=== PATIENT | male | born 1975 | race Caucasian/White ===

== ENCOUNTER 2018-07-01 14:17 | Emergency (ER) | payer MEDICAID, SELFPAY ==
--- NOTE | 2018-07-01 14:28 | NUR.NOTE ---
Nursing Note: Per Magaly Medina, the patient presented with foreign body eye. @ [id number] he told her that his eye felt better, he felt that it fell out. He left without being seen. Diana Corbett.
== END 2018-07-01 14:29 | disposition left before discharge ==
LOC: ER 14:36
PROVIDERS: PCP Family Medicine
DX: Z53.21 Procedure and treatment not carried out due to patient leaving prior to being seen by health care provider (principal)

== ENCOUNTER 2019-01-14 10:34 | Emergency (ER) | payer MEDICAID, SELFPAY ==
[2019-01-14 10:41] VITALS: BP 119/63; PULSE 67; RESP 16; TEMP 36.7; O2SAT 99
--- NOTE | 2019-01-14 10:49 | W.ED.GENAD ---
Discharge Plan Disposition Patient Disposition: HOME Condition: Stable Discharge Details Chief Complaint: Laceration Clinical Impression: Laceration of thumb Primary Care Provider: Jeffrey Tapia ED Provider: Evangelista Brown Mosby Meds and New Rx's Prescriptions: New amoxicillin-pot clavulanate [Augmentin] 875-125 mg tablet 1 tab PO Q12H Qty: 14 RF: 0 Continued ibuprofen 200 MG capsule 600 mg PO Q8H PRN PRNQty: 0 RF: 0 Discharge Instructions Instructions: Laceration (ED) Additional Instructions: if still symptomatic in a week see your primary care provider if you have high fevers, redness spreading down the thumb or severe worsening pain return to the emergency department Medical Decision Making 43 yo male states he was using a knife 3 days ago and accidentally cut the radial side of this thumb, came in today for continued discomfort. HE has no fevers, subjective numbness in distal thumb though sensation on exam is intact. HAs superficial 1cm laceration between tip of thumb and IP joint of thumb with mild erythema, no swelling or crepitus. Given the continued pain and erythema will start abx to tx cellulitis. Advised f/u if still symptomatic in a week and return precautions given. Normal rom of joints so doubt tendon injury. No crepitus and pain is mild not severe so doubt nec fasc Differential Diagnosis Differential Diagnosis: cellulitis, laceration HPI General Mode of arrival: ambulatory. Date/Time Provider Initiated Documentation: 01/14/19 10:45. Limitations to Documentation: no limitations. Information obtained by: patient. History of Present Illness 43 year old M presents to the emergency department with the chief complaint of left thumb pain, described as moderate, and it has been constant. No relieving factors improve symptom(s), No exacerbating factors reported . Patient notes no other symptoms.. Related Data Home Medications Medication Instructions Recorded Confirmed ibuprofen 600 mg PO Q8H PRN PRN #0 tab-cap 06/21/16 01/14/19 amoxicillin-pot clavulanate 1 tab PO Q12H #14 tab 01/14/19 [Augmentin] Previous Rx's Medication Instructions Recorded ibuprofen 600 mg PO Q8H PRN PRN #0 tab-cap 06/21/16 amoxicillin-pot clavulanate 1 tab PO Q12H #14 tab 01/14/19 [Augmentin] Allergies Allergy/AdvReac Type Severity Reaction Status Date / Time No Known Allergies Allergy Unverified 01/14/19 10:43 General Stated Complaint: Laceration JENNIFER: 4 Review of Systems All systems reviewed & are unremarkable except as noted in HPI and below Constitutional Constitutional: Denies chills, Denies fever(s) and Denies weakness Cardiovascular Cardiovascular: Denies chest pain and Denies dyspnea Respiratory Respiratory: Denies dyspnea Gastrointestinal Gastrointestinal: Denies abdominal pain, Denies nausea and Denies vomiting Musculoskeletal Musculoskeletal: Denies joint swelling Neurologic Neurologic: Denies weakness [facility] Social History Smoking/Tobacco Use Status: Never Alcohol Intake: never Drug use: Never Do you feel safe in your relationship?: Yes Exam Const General: no acute distress Orientation: alert HENMT Head: normal to inspection Ears: external ears normal General nose exam: external nose normal Mouth: moist mucous membranes Eyes General: appearance normal, both eyes and all related structures Neck Neck: normal visual inspection Resp Effort & Inspection: normal respiratory effort and able to speak in complete sentences Cardio Rate: regular rate Skin General skin exam: elasticity normal Neuro General: alert and oriented x3 Extrem General: full ROM and normal capillary refill Psych Mental Status: mental status grossly normal Course Vital Signs Vital signs: Vital Signs Temperature 36.7 C 01/14/19 10:41 Pulse 67 01/14/19 10:41 Respiratory Rate 16 01/14/19 10:41 Blood Pressure 119/63 01/14/19 10:41 Pulse Oximetry 99 01/14/19 10:41 Temperature 36.7 C 01/14/19 10:41 Temperature Source Skin 01/14/19 10:41 Pulse 67 01/14/19 10:41 Respiratory Rate 16 01/14/19 10:41 Respiratory Effort Non-Labored 01/14/19 10:41 Blood Pressure 119/63 01/14/19 10:41 Blood Pressure Position Sitting 01/14/19 10:41 Pulse Oximetry 99 01/14/19 10:41 Oxygen Delivery Method Room Air 01/14/19 10:41 Oxygen Flow Rate 0 01/14/19 10:41 Pain Level 5 01/14/19 10:41
== END 2019-01-14 10:54 | disposition home or self-care (01) ==
PROVIDERS: Emergency Provider Emergency Medicine; PCP Family Medicine
DX: S61.122A Laceration with foreign body of left thumb with damage to nail, initial encounter (principal); W26.0XXA Contact with knife, initial encounter
CPT/HCPCS: 99283

== ENCOUNTER 2020-04-19 01:44 | Outpatient (CLI) | payer MEDICAID, SELFPAY ==
--- NOTE | 2020-04-19 11:15 | DI.RAD_ITS ---
EXAM: XR SHOULDER LT COMPLETE 2+V CLINICAL HISTORY: left shoulder pain (chronic),m25.512. TECHNIQUE: 2D digital imaging was performed. COMPARISON: No exams were available for comparison FINDINGS: BONES: No acute fracture is present. No bony destructive lesion is seen. JOINTS: No dislocation present. SOFT TISSUE: Normal. IMPRESSION: Unremarkable radiographs of the left shoulder. DATA REPOSITORY: RADIATION DOSE DELIVERED:
== END 2020-04-19 02:04 ==
PROVIDERS: PCP Family Medicine; Visit Provider Family Medicine
DX: M25.512 Pain in left shoulder (principal); G89.29 Other chronic pain
CPT/HCPCS: 73030

== ENCOUNTER → 2021-10-07 08:54 | Outpatient (CLI) | payer MEDICAID, SELFPAY ==
--- NOTE | 2021-10-07 09:30 | DI.RAD_ITS ---
Exam(s) XR LUMBAR SPINE COMPLETE EXAM: XR LUMBAR SPINE COMPLETE CLINICAL HISTORY: ongoing back pain, despite interventions M54.9 DORSALGIA. TECHNIQUE: 2D digital imaging was performed. Five views. COMPARISON: No exams were available for comparison FINDINGS: BONES: No fracture or destructive lesion. Vertebral bodies are unremarkable. Minimal endplate osteop hytes L4 and L5. Minimal facet hypertrophy identified L4-5 and L5-S1. DISKS: Intervertebral disc spaces are maintained. ALIGNMENT: Lumbar spinal alignment is within normal limits. SOFT TISSUE: Normal. IMPRESSION: Mild degenerative changes. DATA REPOSITORY: RADIATION DOSE DELIVERED:
== END ==
PROVIDERS: PCP Family Medicine; Visit Provider Family Medicine
DX: M47.816 Spondylosis without myelopathy or radiculopathy, lumbar region (principal)
CPT/HCPCS: 72110

== ENCOUNTER → 2021-10-19 01:42 | Outpatient (CLI) | payer MEDICAID, SELFPAY ==
--- NOTE | 2021-10-19 07:15 | DI.MRI_ITS ---
Exam(s) MR LUMBAR SPINE WO EXAM: MR LUMBAR SPINE WO CLINICAL HISTORY: persistent low back pain with left leg radiculopathy, M54.9. TECHNIQUE: Multiplanar multisequence MRI of the Lumbar spine was performed. COMPARISON: CR XR LUMBAR SPINE COMPLETE from 10/07/2021 FINDINGS: Conus medullaris is at normal level. There is no evidence of conus mass nor subjacent clumping of in trathecal nerve roots to suggest arachnoiditis. The distal thecal sac appears unremarkable.There is no evidence of Tarlov intrasacral cysts nor other significant findings within the sacral canal Bones:There are no fractures nor ominous osseous lesions in the lumbar vertebral bodies and visualize d sacrum. With respect to the individual levels... T12-L1: Unremarkable L1-2: Normal disc height and signal. No disc herniation nor central canal stenosis.No foraminal steno sis L2-3: Normal disc height. There is mild symmetrical annular bulging without evidence of a significant disc herniation. No central spinal canal stenosis.No foraminal stenosis.No facet arthropathy. L3-4: Normal disc height. Symmetrical mild annular bulging. No dominant disc herniation. There is mild central spinal canal stenosis due to short AP dimensions the pedicles and the annular bulging. No facet arthropathy evident.No foraminal stenosis. L4-5: Normal disc height and signal. Mild symmetrical annular bulging. No disc herniation. Central canal dimensions are lower normal. Annular bulging extends into the floor of the exiting neural for juan but there is no significant foraminal stenosis. Also no facet arthropathy. L5-S1: There is mild disc space narrowing at this level. There is posterior annular bulging. There is a T2 bright spot in the posterior annulus, left of center consistent with small annular tear at th is level.. There is central subligamentous annular bulging which contacts the anterior thecal sac bu t there is no prominent disc herniation at this level. Central canal dimensions are lower normal. T here is, however, an element of foraminal stenosis on the left side at this level. This is related t o more prominent disc height loss on the left side. There is no true foraminal stenosis on the oppos ite-right side. No facet arthropathy evident. Soft tissues: paraspinal soft tissues appear unremarkable. IMPRESSION: 1. Mild multilevel findings as described above. 2. There is mild-moderate foraminal stenosis on the left side at L5-S1 level as described above. Exi ting right neural foramen at this level appears unremarkable. There is also no central canal stenosi s at this level. 3. Small annular tear left of center posteriorly at L5-S1 level. However, there is no distinct disc herniation at this level. Instead, there is mild annular bulging at L5-S1 level noted, but without c entral canal stenosis. DATA REPOSITORY:
== END ==
PROVIDERS: PCP Family Medicine; Visit Provider Family Medicine
DX: M54.59 Other low back pain; M79.605 Pain in left leg; M51.17 Intervertebral disc disorders with radiculopathy, lumbosacral region; M51.87 Other intervertebral disc disorders, lumbosacral region
CPT/HCPCS: 72148

== ENCOUNTER 2021-11-10 11:44 | Outpatient (CLI) | payer MEDICAID, SELFPAY ==
--- NOTE | 2021-11-10 06:00 | DI.RAD_ITS ---
Exam(s) XR PAIN CLINIC LUMBAR SP 2V EXAM: XR PAIN CLINIC LUMBAR SP 2V CLINICAL HISTORY: DX: lumbar radiculopathy. TECHNIQUE: Fluoroscopy was provided for the referring physician for guidance with performing pain cl inic injection procedure. COMPARISON: No exams were available for comparison FINDINGS: Please see procedure note for details. Fluoro time: 23.2 seconds RADIATION DOSE DELIVERED: Ka,r=8.32 mGy
[2021-11-10 11:53] VITALS: BP 108/63; PULSE 60; RESP 20; TEMP 36.9; O2SAT 99
[2021-11-10] MEDS: Omnipaque 240 MG/ML 50 ML BTL IJ (12:28)
--- NOTE | 2021-11-10 12:30 | PDOC.PAIN_ITS ---
Pain Clinic Procedure Note Procedure Note Procedure Note: Lumbar Epidural Steroid Injection Procedure Note COMMENTS:I previously evaluated him last week in the office. Pre-procedure pain VAS = 10/10. Dx: Lumbosacral radiculopathy Felipe Vo has been referred to the [facility] Management [facility] for lumbar epidural steroid injection. The patient was greeted by the nurse who verified patients name and . Patient was then taken to the fluoroscopy suite. The patient was interviewed and the medial record reviewed. There were no medical, pharmacologic, radiographic, or other structural contraindications to attempting fluoroscopically guided lumbar epidural steroid injection. Risks and expected side effects as well as potential benefits of the procedure were reviewed and voiced concerns expressed. The patient consent form was signed and witnessed. Standard patient time-out procedure was performed. The patient was placed in the prone position on the fluoroscopy table and automated blood pressure cuff and pulse oximeter applied. The skin entry point for entering/approaching the epidural space at theL5-S1 and marked. Following thorough chlorhexadine preparation of the skin and draping and 1% lidocaine infiltration of the skin entry point and subcutaneous tissues, a 18 gauge Touhy needle was placed under fluoroscopic guidance and with loss of resistance technique into the epidural space. Needle tip placement and depth were aided and confirmed by fluoroscopy. There was no paresthesia or return of blood or CSF through the needle. 1 cc's of Omnipaque 240 was injected with clear epidural spread confirmed with fluoroscopy. 5 cc of Normal Saline was injected, followed by 4 cc of 1% Lidocaine, then 80mg depomedrol was injected. The needle was then flushed with 1 cc of 1% Lidocaine and the needle was removed. There was not any unusual discomfort expressed by Felipe Vo. Patient's vital signs were stable throughout the procedure and were as recorded in nursing records. Follow up plans and appointments were discussed with patient. Post procedure instruction was given as documented in nursing records and having met discharge criteria and was discharged from the [facility] Management Center. COMMENTS: If this procedure is helpful, it can be completed up to 3 times per 12 months. Post-procedure pain VAS = 0/10. Yan Son DO, MPH [facility]
[2021-11-10] MEDS: methylPREDNISolone ACETATE 80 MG/ML VIAL IJ (12:31)
[2021-11-10 12:32] VITALS: BP 126/77; PULSE 64; RESP 19; O2SAT 99
== END 2021-11-10 11:45 | disposition home or self-care (01) ==
LOC: PC 11:44
PROVIDERS: PCP Family Medicine; Visit Provider Preventive Medicine Occupational Medicine
DX: M54.17 Radiculopathy, lumbosacral region (principal)
CPT/HCPCS: 62323; 72100; J1040; Q9967

== ENCOUNTER 2022-02-07 13:41 | Outpatient (CLI) | payer MEDICAID, SELFPAY ==
--- NOTE | 2022-02-07 06:00 | DI.RAD_ITS ---
Exam(s) XR PAIN CLINIC LUMBAR SP 2V EXAM: XR PAIN CLINIC LUMBAR SP 2V CLINICAL HISTORY: Dx: Lumbar Radiculopathy TECHNIQUE: 2D and realtime digital imaging was performed. Radiologist not present. CONTRAST MATERIAL: None. COMPARISON: No exams were available for comparison FINDINGS: Fluoroscopy was provided for pain management therapy. Please refer to procedure report or details. Cumulative dose: Ka,r=3.11 mGy IMPRESSION: RADIATION DOSE DELIVERED:
[2022-02-07 13:50] VITALS: BP 127/67; PULSE 61; RESP 20; TEMP 36.2; O2SAT 99
--- NOTE | 2022-02-07 14:12 | PDOC.PAIN ---
Date of service: 02/07/22 Time of Service: 14:13 Pain Clinic Procedure Note Procedure Note Procedure Note: Lumbar Epidural Steroid Injection Procedure Note COMMENTS: Patient reports at least 80% pain relief lasting for 2.5 months since his last LESI. He returns for repeat injection. Pre-procedure pain VAS = 5/10. Dx: Lumbosacral radiculopathy Felipe Vo has been referred to the [facility] Management Center for lumbar epidural steroid injection. The patient was greeted by the nurse who verified patients name and . Patient was then taken to the fluoroscopy suite. The patient was interviewed and the medial record reviewed. There were no medical, pharmacologic, radiographic, or other structural contraindications to attempting fluoroscopically guided lumbar epidural steroid injection. Risks and expected side effects as well as potential benefits of the procedure were reviewed and voiced concerns expressed. The patient consent form was signed and witnessed. Standard patient time-out procedure was performed. The patient was placed in the prone position on the fluoroscopy table and automated blood pressure cuff and pulse oximeter applied. The skin entry point for entering/approaching the epidural space at theL5-S1 and marked. Following thorough chlorhexadine preparation of the skin and draping and 1% lidocaine infiltration of the skin entry point and subcutaneous tissues, a 18 gauge Touhy needle was placed under fluoroscopic guidance and with loss of resistance technique into the epidural space. Needle tip placement and depth were aided and confirmed by fluoroscopy. There was no paresthesia or return of blood or CSF through the needle. 1 cc's of Omnipaque 240 was injected with clear epidural spread confirmed with fluoroscopy. 5 cc of Normal Saline was injected, followed by 4 cc of 1% Lidocaine, then 80mg depomedrol was injected. The needle was then flushed with 0.5cc of 1% Lidocaine and the needle was removed. There was not any unusual discomfort expressed by Felipe Vo. Patient's vital signs were stable throughout the procedure and were as recorded in nursing records. Follow up plans and appointments were discussed with patient. Post procedure instruction was given as documented in nursing records and having met discharge criteria and was discharged from the Pain Management Center. COMMENTS: If this procedure is helpful, it can be completed up to 3 times per 12 months. Post-procedure pain VAS = 0/10. Jess Flor MD Pain Management
[2022-02-07] MEDS: Omnipaque 240 MG/ML 50 ML BTL IJ (14:15)
[2022-02-07] MEDS: methylPREDNISolone ACETATE 80 MG/ML VIAL IJ (14:16)
[2022-02-07 14:20] VITALS: BP 131/76; PULSE 73; RESP 16; O2SAT 99
== END 2022-02-07 13:42 | disposition home or self-care (01) ==
LOC: PC 13:42
PROVIDERS: PCP Family Medicine; Visit Provider Internal Medicine
DX: M54.17 Radiculopathy, lumbosacral region (principal)
CPT/HCPCS: 62323; 72100; J1040; Q9967

== ENCOUNTER 2022-05-22 18:44 | Emergency (ER) | payer MEDICAID, SELFPAY ==
[2022-05-22 18:46] VITALS: PULSE 70; RESP 18; TEMP 36.6; O2SAT 98
[2022-05-22 18:48] VITALS: BP 121/76
--- NOTE | 2022-05-22 19:01 | ED.GENADUL_ITS ---
Discharge Plan Disposition Patient Disposition: Home Condition: Stable Discharge Details Clinical Impression: Abrasion of cornea, right Primary Care Provider: Jeffrey Tapia ED Provider: Evangelista Brown Home Meds and New Rx's Prescriptions: Continued naproxen 500 mg tablet 500 mg PO BID PRN (Reason: pain) Qty: 60 1RF ibuprofen 200 MG capsule 600 mg PO Q8H PRN PRNQty: 0 0RF Discontinued cyclobenzaprine 10 mg tablet 10 mg PO HS PRN (Reason: muscle spasm) Qty: 20 0RF Patient Comments: not taking Discharge Instructions Instructions: Corneal Abrasion (ED) Additional Instructions: if pain continues in 2-[address] 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 He went to urgent care, diagnosed with corneal abrasion and d/c'd after having tdap and started on erythromycin. HIs pain returned this evening so he came here for an evaluation. He arrives stable, no periorbital swelling, perrl, eomi, his right conjunctiva is mildly erythematous throughout. No visible foreign body on exam, had immediate relief of pain with tetracaine. He did have a small 1mm piece of dust under his right upper eyelid, no other foreign bodies. Has a small 1mm abrasion to the right lateral conjunctiva lateral to the iris, no other findings and no findings to suggest globe rupture. He is 20/30 in both eyes. He is stable for d/c, he will continue erythromycin and return precautions given and advised to f/u with [facility] if pain continues in 2-3 days Differential Diagnosis Differential Diagnosis: corneal abrasion, foreign body HPI General Mode of arrival: ambulatory . Date/Time Provider Initiated Documentation: 05/22/22 18:44 . Limitations to Documentation: no limitations . Information obtained by: patient . History of Present Illness 47 year old M presents to the emergency department with the chief complaint of right eye pain, described as moderate, Patient started experiencing this day(s) (1) and it has been constant. No relieving factors improve symptom(s), No exacerbating factors reported . Patient notes no other symptoms.. Related Data Home Medications Medication Instructions Recorded Confirmed ibuprofen 200 mg capsule 600 mg PO Q8H PRN PRN #0 tab-caps 05/03/17 04/03/23 naproxen 500 mg tablet 500 mg PO BID PRN pain #60 tabs 10/14/21 05/22/22 Previous Rx's Medication Instructions Recorded ibuprofen 200 mg capsule 600 mg PO Q8H PRN PRN #0 tab-caps 06/21/16 naproxen 500 mg tablet 500 mg PO BID PRN pain #60 tabs 10/14/21 Allergies Allergy/AdvReac Type Severity Reaction Status Date / Time No Known Allergies Allergy Verified 05/22/22 18:49 General Stated Complaint: EyeProblem JENNIFER: 4 Review of Systems All systems reviewed & are unremarkable except as noted in HPI and below Constitutional Constitutional: Denies chills, Denies fever(s) and Denies weakness Cardiovascular Cardiovascular: Denies chest pain and Denies dyspnea Respiratory Respiratory: Denies cough and Denies dyspnea Gastrointestinal Gastrointestinal: Denies abdominal pain, Denies nausea and Denies vomiting Genitourinary Genitourinary: Denies dysuria Integumentary/Breasts Skin/Breast: Denies rash Neurologic Neurologic: Denies weakness PFSH All Active Problems (Updated 05/22/22 @ 19:15 by Evangelista Brown MD) Subcutaneous cyst (Acute 02/27/17) Patellofemoral syndrome, bilateral (Chronic) Left shoulder pain (Acute) Back pain (Acute) Lumbar radiculopathy (Acute) Corneal abrasion (Acute) Abrasion of cornea, right (Acute) Social History Smoking/Tobacco Use Status: Never Smoking risk assessment performed?: Yes Alcohol Intake: never Drug use: Never Substance use type: does not use Do you feel safe in your relationship?: Yes Exam Const General: no acute distress Orientation: alert HENMT Head: normal to inspection Ears: external ears normal General nose exam: external nose normal Mouth: moist mucous membranes Eyes Periorbital: periorbital findings normal Eyelids: eyelids normal Neck Neck: normal visual inspection Resp Effort & Inspection: normal respiratory effort and able to speak in complete sentences Cardio Rate: regular rate Skin General skin exam: no rashes or lesions noted Neuro General: patient alert and patient oriented x3 Extrem General: normal to inspection Psych Mental Status: mental status grossly normal Course Vital Signs Vital signs: Vital Signs Temperature 36.6 C 05/22/22 18:46 Pulse 70 05/22/22 18:46 Respiratory Rate 18 05/22/22 18:46 Pulse Oximetry 98 05/22/22 18:46 Temperature 36.6 C 05/22/22 18:46 Temperature Source Oral 05/22/22 18:46 Pulse 70 05/22/22 18:46 Respiratory Rate 18 05/22/22 18:46 Respiratory Effort Normal, Non-Labored 05/22/22 18:48 Blood Pressure 121/76 05/22/22 18:48 Pulse Oximetry 98 05/22/22 18:46 Oxygen Delivery Method Room Air 05/22/22 18:46 Oxygen Flow Rate 0 05/22/22 18:46 PAWSS Have you Been Recently Intoxicated or Drunk Within the Last 30 days?: No Have you Ever Experienced Previous Episodes of Alcohol Withdrawal?: No Have you ever Experienced Withdrawal Seizures?: No Have you ever Experienced Delirium Tremens(DT)s?: No Have you ever undergone Alcohol Rehabilitation Treatment (i.e, inpt ot outpatient treatment programs)?: No Have you ever Experienced Blackouts?: No Have you ever Combined Alcohol with other Downers within the last 90 days?: No Have you ever Combined Alcohol with any other Substance of Abuse during the last 90 days?: No Positive Blood Alcohol level on Presentation? [PCS.BAL]: No Evidence of Increased Autonomic Activity (i.e. HR>120, tremor, sweating, agitation, nausea)?: No Result: 0
[2022-05-22] MEDS: Balanced Salt Solution 15 ML BTL OP (19:21)
[2022-05-22] MEDS: Fluorescein STRIPS 100/BOX 1 MG OP (19:21)
[2022-05-22] MEDS: Tetracaine 0.5% 4 ML BTL OP (19:22)
== END 2022-05-22 19:31 | disposition home or self-care (01) ==
PROVIDERS: Emergency Provider Emergency Medicine; PCP Family Medicine
DX: S05.01XA Injury of conjunctiva and corneal abrasion without foreign body, right eye, initial encounter (principal); X58.XXXA Exposure to other specified factors, initial encounter
CPT/HCPCS: 99283

== ENCOUNTER 2022-06-28 09:21 | Outpatient (CLI) | payer MEDICAID, SELFPAY ==
[2022-06-28 09:25] VITALS: BP 122/82; PULSE 77; RESP 20; TEMP 36.3; O2SAT 99
[2022-06-28] MEDS: methylPREDNISolone ACETATE 80 MG/ML VIAL IJ (09:55)
[2022-06-28] MEDS: Omnipaque 240 MG/ML 50 ML BTL IJ (09:55)
--- NOTE | 2022-06-28 09:55 | PDOC.PAIN_ITS ---
Date of service: 06/28/22 Time of Service: 10:32 Pain Managment Procedure Note Procedure Note Procedure Note: Lumbar Epidural Steroid Injection Procedure Note COMMENTS:He last had this procedure on 02/07/22 and had >3 months of >50% pain improvement Dx: Lumbosacral radiculopathy Pre-procedure pain VAS was 6/10 Felipe Vo has been referred to the Pain Management Center for lumbar epidural steroid injection. The patient was greeted by the nurse who verified patients name and . Patient was then taken to the fluoroscopy suite. The patient was interviewed and the medial record reviewed. There were no medical, pharmacologic, radiographic, or other structural contraindications to attempting fluoroscopically guided lumbar epidural steroid injection. Risks and expected side effects as well as potential benefits of the procedure were reviewed and voiced concerns expressed. The patient consent form was signed and witnessed. Standard patient time-out procedure was performed. The patient was placed in the prone position on the fluoroscopy table and automated blood pressure cuff and pulse oximeter applied. The skin entry point for entering/approaching the epidural space at L5-S1 (towards the right) and marked. Following thorough chlorhexadine preparation of the skin and draping and 1% lidocaine infiltration of the skin entry point and subcutaneous tissues, a 18 gauge Touhy needle was placed under fluoroscopic guidance and with loss of resistance technique into the epidural space. Needle tip placement and depth were aided and confirmed by fluoroscopy. There was no paresthesia or return of blood or CSF through the needle. 1 cc's of Omnipaque 240 was injected with clear epidural spread confirmed with fluoroscopy. 80mg depomedrol was injected and this was flushed with 2 cc of 1% Lidocaine. The needle was then removed without difficulty. There was not any unusual discomfort expressed by Felipe Vo. Patient's vital signs were stable throughout the procedure and were as recorded in nursing records. Follow up plans and appointments were discussed with patient. Post procedure instruction was given as documented in nursing records and having met discharge criteria and was discharged from the Pain Management Center. COMMENTS: If this procedure is helpful, it can be completed up to 3 times per 12 months. Post-procedure pain VAS was 1/10. Yan Son DO, MPH [facility]-Pain Management [facility] for [facility] Management
[2022-06-28 09:58] VITALS: BP 126/86; PULSE 63; RESP 20; O2SAT 98
--- NOTE | 2022-06-28 10:00 | DI.RAD_ITS ---
Exam(s) XR PAIN CLINIC LUMBAR SP 2V EXAM: XR PAIN CLINIC LUMBAR SP 2V CLINICAL HISTORY: Dx: Lumbar Radiculopathy. TECHNIQUE: Fluoroscopy was provided for the referring physician for guidance with performing pain cl inic injection procedure. COMPARISON: No exams were available for comparison FINDINGS: Please see procedure note for details. Fluoro time: 14.5 seconds RADIATION DOSE DELIVERED: Ka,r=4.28 mGy
== END 2022-06-28 09:22 | disposition home or self-care (01) ==
PROVIDERS: PCP Family Medicine; Visit Provider Preventive Medicine Occupational Medicine
DX: M54.17 Radiculopathy, lumbosacral region (principal)
CPT/HCPCS: 62323; 72100; J1040; Q9967

== ENCOUNTER 2022-11-16 10:34 | Emergency (ER) | payer MEDICAID, SELFPAY ==
[2022-11-16 10:37] VITALS: BP 145/89; PULSE 88; RESP 20; TEMP 36.6; O2SAT 99
--- NOTE | 2022-11-16 10:45 | DI.RAD_ITS ---
Exam(s) XR ANKLE LT COMPLETE EXAM: XR ANKLE LT COMPLETE CLINICAL HISTORY: Fall, Pain. TECHNIQUE: 2D digital imaging was performed. COMPARISON: No exams were available for comparison FINDINGS: 3 views No evidence of acute fracture or widening of the ankle mortise. Talar dome unremarkable. Bone densi ty normal. No osseous tarsal coalition. IMPRESSION: No fracture. DATA REPOSITORY: RADIATION DOSE DELIVERED:
--- NOTE | 2022-11-16 10:45 | DI.RAD_ITS ---
Exam(s) XR TIB/FIB LT EXAM: XR TIB/FIB LT CLINICAL HISTORY: Calf Pain, fall. TECHNIQUE: 2D digital imaging was performed. COMPARISON: No exams were available for comparison FINDINGS: Two views. No evidence of acute fracture. Bone density normal. No osseous lesions. No radiopaque foreign body . IMPRESSION: No fracture. DATA REPOSITORY: RADIATION DOSE DELIVERED:
--- NOTE | 2022-11-16 10:55 | W.ED.GENAD ---
Discharge Plan Disposition Patient Disposition: Home Condition: Stable Discharge Details Clinical Impression: Sprain of left lower leg Primary Care Provider: Jeffrey Tapia ED Provider: Mirian Melton Home Meds and New Rx's Prescriptions: No Action cyclobenzaprine 10 mg tablet 10 mg PO HS PRN (Reason: muscle spasm) Qty: 20 2RF Patient Comments: not taking prednisone 20 mg tablet 40 mg PO DAILY Qty: 10 0RF Patient Comments: not taking naproxen 500 mg tablet 500 mg PO BID PRN (Reason: pain) Qty: 60 1RF Patient Comments: not taking epinephrine [EpiPen] 0.3 mg/0.3 mL auto-injector 0.3 mg IM ONCE PRN (Reason: anaphylaxis) Qty: 2 0RF Discharge Instructions Instructions: Leg Sprain (ED) Additional Instructions: No evidence of abnormality on the XRays. Wear the walking boot as needed for comfort. Rest, Ice, Compression with Jake wrap, Elevation while sitting or laying down. If no improvement in 1-2 weeks please follow up with Orthopedics. Please take Tylenol or Ibuprofen with food every 4-6 hours as needed for pain and swelling. 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 He reports he has injured his achilles tendon in the past, no history of surgery. He does have intact flexion and extension with some pain. Mild amount of swelling noted to posterior calf, distal CMS intact. No significant tenderness at achilles insertion site. XR ankle and XR Tib Fib ordered. X-Rays are within normal limits, patietn given crutches and a tall walking boot. Instructed to follow up with Orthopedics and given RICE instructions. This text was generated using [employer] system, please disregard any oddities of phrase or misspellings. Imaging Data Radiologic Study: Imaging: X-Ray Radiologist's impression: EXAM: XR TIB/FIB LT CLINICAL HISTORY: Calf Pain, fall. TECHNIQUE: 2D digital imaging was performed. COMPARISON: No exams were available for comparison FINDINGS: Two views. No evidence of acute fracture. Bone density normal. No osseous lesions. No radiopaque foreign body. IMPRESSION: No fracture. Radiologic Study #2: Imaging: X-Ray Radiologist's impression: EXAM: XR ANKLE LT COMPLETE CLINICAL HISTORY: Fall, Pain. TECHNIQUE: 2D digital imaging was performed. COMPARISON: No exams were available for comparison FINDINGS: 3 views No evidence of acute fracture or widening of the ankle mortise. Talar dome unremarkable. Bone density normal. No osseous tarsal coalition. IMPRESSION: No fracture. HPI General Mode of arrival: ambulatory (Crutches). Date/Time Provider Initiated Documentation: 11/16/22 10:44. Limitations to Documentation: no limitations. Information obtained by: patient, RN notes reviewed and old records reviewed. 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 He reports he has injured his achilles tendon in the past, no history of surgery. He does have intact flexion and extension with some pain. Mild amount of swelling noted to posterior calf, distal CMS intact. No significant tenderness at achilles insertion site. Related Data Home Medications Medication Instructions Recorded Confirmed naproxen 500 mg tablet 500 mg PO BID PRN pain #60 tabs 10/14/21 07/28/22 cyclobenzaprine 10 mg tablet 10 mg PO HS PRN muscle spasm #20 07/28/22 07/28/22 tabs prednisone 20 mg tablet 40 mg PO DAILY #10 tabs 07/28/22 07/28/22 epinephrine 0.3 mg/0.3 mL 0.3 mg (0.3 mL) IM ONCE PRN 09/13/22 11/16/22 injection, auto-injector (EpiPen) anaphylaxis #2 ea Previous Rx's Medication Instructions Recorded naproxen 500 mg tablet 500 mg PO BID PRN pain #60 tabs 10/14/21 cyclobenzaprine 10 mg tablet 10 mg PO HS PRN muscle spasm #20 07/28/22 tabs prednisone 20 mg tablet 40 mg PO DAILY #10 tabs 07/28/22 epinephrine 0.3 mg/0.3 mL 0.3 mg (0.3 mL) IM ONCE PRN 09/13/22 injection, auto-injector (EpiPen) anaphylaxis #2 ea Allergies Allergy/AdvReac Type Severity Reaction Status Date / Time No Known Allergies Allergy Verified 11/16/22 10:42 General Stated Complaint: Orthopedic JENNIFER: 4 Review of Systems All systems reviewed & are unremarkable except as noted in HPI and below PFSH All Active Problems (Updated 11/16/22 @ 11:49 by Mirian Melton NP) Sprain of left lower leg (Acute) Subcutaneous cyst (Acute 02/27/17) Patellofemoral syndrome, bilateral (Chronic) Left shoulder pain (Acute) Back pain (Acute) Lumbar radiculopathy (Acute) Corneal abrasion (Acute) Surgical History H/O knee surgery H/O right wrist surgery Social History Smoking/Tobacco Use Status: Never Smoking risk assessment performed?: Yes Alcohol Intake: never Drug use: Daily Substance use type: marijuana Details: takes gummies daily Housing: house Do you feel safe at home: Yes Do you feel safe in your relationship?: Yes Exam Extrem Left lower extremity: lower leg Details: tenderness and localized swelling and ankle Course Vital Signs Vital signs: Vital Signs Temperature 36.6 C 11/16/22 10:37 Pulse 88 11/16/22 10:37 Respiratory Rate 20 11/16/22 10:37 Blood Pressure 145/89 H 11/16/22 10:37 Pulse Oximetry 99 11/16/22 10:37 Temperature 36.6 C 11/16/22 10:37 Temperature Source Skin 11/16/22 10:37 Pulse 88 11/16/22 10:37 Respiratory Rate 20 11/16/22 10:37 Respiratory Effort Normal, Non-Labored 11/16/22 10:46 Blood Pressure 145/89 H 11/16/22 10:37 Blood Pressure Position Sitting 11/16/22 10:37 Pulse Oximetry 99 11/16/22 10:37 Oxygen Delivery Method Room Air 11/16/22 10:37 Oxygen Flow Rate 0 11/16/22 10:37 Pain Level 8 11/16/22 10:37 PAWSS Have you Been Recently Intoxicated or Drunk Within the Last 30 days?: No Have you Ever Experienced Previous Episodes of Alcohol Withdrawal?: No Have you ever Experienced Withdrawal Seizures?: No Have you ever Experienced Delirium Tremens(DT)s?: No Have you ever undergone Alcohol Rehabilitation Treatment (i.e, inpt ot outpatient treatment programs)?: No Have you ever Experienced Blackouts?: No Have you ever Combined Alcohol with other Downers within the last 90 days?: No Have you ever Combined Alcohol with any other Substance of Abuse during the last 90 days?: No Positive Blood Alcohol level on Presentation? [PCS.BAL]: No Evidence of Increased Autonomic Activity (i.e. HR>120, tremor, sweating, agitation, nausea)?: No Result: 0
[2022-11-16 12:18] VITALS: BP 145/89; PULSE 88; RESP 20; TEMP 36.6; O2SAT 99
== END 2022-11-16 12:35 | disposition home or self-care (01) ==
PROVIDERS: Emergency Provider Registered Nurse Emergency; PCP Family Medicine
DX: S86.912A Strain of unspecified muscle(s) and tendon(s) at lower leg level, left leg, initial encounter; W01.0XXA Fall on same level from slipping, tripping and stumbling without subsequent striking against object, initial encounter; Y99.0 Civilian activity done for income or pay
CPT/HCPCS: 29515; 99283; 73590; 73610

== ENCOUNTER 2023-03-07 08:59 | Outpatient (CLI) | payer MEDICAID, SELFPAY ==
[2023-03-07 12:37] LABS: Calculated LDL 200 mg/dL (<100); Cholesterol 299 mg/dL (<200); Glucose 100 mg/dL (74-106); HDL Cholesterol 51 mg/dL (40-60); Triglyceride 242 mg/dL (<150)
== END 2023-03-07 09:00 | disposition home or self-care (01) ==
PROVIDERS: PCP Family Medicine; Referring Provider Family Medicine; Visit Provider Family Medicine
DX: E78.5 Hyperlipidemia, unspecified (principal); R73.9 Hyperglycemia, unspecified; Z12.5 Encounter for screening for malignant neoplasm of prostate
CPT/HCPCS: 36415; 80061; 82947; 84153

== ENCOUNTER → 2023-05-18 13:59 | Outpatient (CLI) | payer MEDICAID, SELFPAY ==
--- NOTE | 2023-05-18 09:52 | DI.RAD_ITS ---
Exam(s) XR SHOULDER LT COMPLETE 2+V EXAM: XR SHOULDER LT COMPLETE 2+V CLINICAL HISTORY: left shoulder pain,m25.512. TECHNIQUE: 2D digital imaging was performed of the left shoulder. Five images were obtained. AP, G rashey, Y-view and axillary views were obtained. COMPARISON: CR XR SHOULDER LT COMPLETE 2+V from 04/19/2020 FINDINGS: BONES: No acute fracture is present. No bony destructive lesion is seen. JOINTS: No dislocation present. SOFT TISSUE: Normal. IMPRESSION: Unremarkable radiographs of the left shoulder. DATA REPOSITORY: RADIATION DOSE DELIVERED:
== END ==
PROVIDERS: PCP Family Medicine; Visit Provider Family Medicine
DX: M25.512 Pain in left shoulder (principal)
CPT/HCPCS: 73030

== ENCOUNTER → 2023-06-05 01:03 | Outpatient (CLI) | payer MEDICAID, SELFPAY ==
--- NOTE | 2023-06-05 07:00 | DI.MRI_ITS ---
Exam(s) MR UPPER JOINT LT WO EXAM: MR UPPER JOINT LT WO CLINICAL HISTORY: chronic left shoulder pain and disability,m25.512. TECHNIQUE: Multiplanar multisequence MRI was performed. COMPARISON: Plain films 18 May 2023 FINDINGS: BONES: There is no fracture or contusion pattern. JOINTS:The acromioclavicular joint mild degenerative changes. The glenohumeral joint is normal. TENDONS: Supraspinatus: Mild distal thickening and intermediate signal consistent tendinosis. Infraspinatus: Unremarkable. Subscapularis: Unremarkable. Teres [place]: Unremarkable. Biceps and [place]: Unremarkable. MUSCLES: Unremarkable. GLENOID LABRUM: Unremarkable on this noncontrast examination. SOFT TISSUES: Unremarkable. OTHER: Subacromial and subdeltoid bursae shows minimal fluid. . IMPRESSION: Mild supraspinatus tendinosis. DATA REPOSITORY:
== END ==
PROVIDERS: PCP Family Medicine; Visit Provider Family Medicine
DX: M25.512 Pain in left shoulder (principal); M67.814 Other specified disorders of tendon, left shoulder
CPT/HCPCS: 73221